=== PATIENT | male | born 1985 | race Caucasian/White ===

== ENCOUNTER 2025-02-25 09:04 | Outpatient (REF) | payer OTHER, SELFPAY ==
--- NOTE | ~2025-02-25 | XR_ITS ---
EXAMINATION: XR KNEE, RIGHT CLINICAL INFORMATION: M17.11 - Unilateral primary osteoarthritis, right knee COMPARISON: None available. TECHNIQUE: AP view bilateral knees standing, lateral and patellofemoral views right knee. FINDINGS: LEFT Knee: No fracture or dislocation. Normal alignment. Preserved joint spaces. Normal soft tissues. RIGHT Knee: No fracture, dislocation, or suspicious bone lesion. Joint spaces are preserved. Normal knee and patellar alignment. Bipartite patella noted. No evidence of joint effusion. Normal soft tissues. XR/XR knee RT 3V IMPRESSION: 1. Normal right knee. Electronically signed by: Eran Macdonald MD 02/25/2025 09:56 AM EDT
== END 2025-02-25 09:05 | disposition home or self-care (01) ==
LOC: HO.HOSX 09:04
PROVIDERS: PCP Internal Medicine; Visit Provider Orthopaedic Surgery
DX: Q74.1 Congenital malformation of knee (principal); M17.11 Unilateral primary osteoarthritis, right knee
CPT/HCPCS: 73562

== ENCOUNTER 2025-02-25 09:04 | Outpatient (AMB) | payer OTHER, SELFPAY ==
--- NOTE | 2025-02-25 09:07 | MHC.OFFVIS ---
Vital Signs 02/25/25 09:22 Height 5 ft 9 in Weight 195 lb BMI 28.8 Intake Visit Reasons: New Patient - Right Knee Pain Intake Note: Phillip is a 39 year old male who presents today for a new patient visit with complaints of Right Knee Pain. Patient rpeorts that he has had ongoing right knee pain for about 2 months now. Denies injury. His pain is felt all the time. He is taking Aspirin Daily occasionally BID which is not helping. No previous treatments. Allergies bee pollen (bee stings) Allergy (Verified 02/25/25 09:20) Unknown HPI HPI New Patient - Right Knee Pain: Details: This is a 39-year-old gentleman who is an avid runner who about 8 weeks ago started having right patellar pain. 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 He still can not run and is uncomfortable throughout the day. The pain localized to the superolateral aspect of his right patella. He denies injury. [facility] Social History (Updated 02/25/25 @ 09:22 by Eli Grajeda [facility]) Current occupational status: employed Current occupation: Respiratory Therapist Physical Exam Vital Signs: BMI result Body Mass Index 28.8 Extrem Other: On exam there is tenderness to palpation over the proximal lateral aspect of his right patella. There are no skin changes and there is no effusion. He has mild pain with resisted knee extension. He has full range of motion. Results Reviewed Results Reviewed: I personally reviewed relevant radiographs. RIGHT Knee: No fracture, dislocation, or suspicious bone lesion. Joint spaces are preserved. Normal knee and patellar alignment. Bipartite patella noted. No evidence of joint effusion. Normal soft tissues. 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 I recommend a physical therapy, a Liborio Pull lateral bolster knee sleeve was given to the patient and I recommend an MRI to better assess. 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
[2025-02-25 09:22] VITALS: BMI 28.8
== END 2025-02-25 16:04 | disposition home or self-care (01) ==
LOC: HO.HOS 09:04
PROVIDERS: PCP Internal Medicine; Visit Provider Orthopaedic Surgery
DX: Q74.1 Congenital malformation of knee (principal)
CPT/HCPCS: 99203

== ENCOUNTER → 2025-02-25 09:13 | Outpatient (BNV) | payer OTHER, SELFPAY | PROVIDERS: PCP Internal Medicine; Visit Provider Radiology Diagnostic Radiology | DX: M17.11 Unilateral primary osteoarthritis, right knee (principal) | CPT/HCPCS: 73562 ==

== ENCOUNTER → 2025-03-15 17:40 | Outpatient (BNV) | payer OTHER, SELFPAY | PROVIDERS: PCP Internal Medicine; Visit Provider Radiology Diagnostic Radiology | DX: Q74.1 Congenital malformation of knee (principal) | CPT/HCPCS: 73721 ==

== ENCOUNTER 2025-03-15 17:41 | Outpatient (REF) | payer OTHER, SELFPAY ==
--- NOTE | ~2025-03-15 | MR_ITS ---
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 TECHNIQUE: Coronal T1 and fat-suppressed proton density, sagittal proton density and fat-suppressed proton density, and axial fat suppressed T2 weighted MR images of the right knee were obtained. FINDINGS: Bone marrow: There is a bipartite patella involving the superolateral aspect of the patella. There is no marrow edema within the unfused accessory ossification center or the remainder of the patella. There is sclerosis involving the accessory ossicle. Joint effusion: There is no joint effusion. Young's cyst: There is no Young's cyst. Articular cartilage: Intact Muscles/soft tissues: The visualized muscles demonstrate normal signal intensity. Anterior cruciate ligament: Intact Posterior cruciate ligament: Intact Medial collateral ligament: Intact Lateral collateral ligament: Intact Medial meniscus: There is a tiny linear focus of increased T2 signal with intensity at the junction of the body and posterior horn which may contact the superior joint surface. Lateral meniscus: Intact Flexor mechanism: The popliteus and gastrocnemius tendons are intact. There is increased signal intensity at the insertion of the semimembranosus tendon suggestive of a partial tear. Quadriceps tendon: Intact Patellar tendon: Intact Patellar retinacula: Intact MR/MR knee RT wo con IMPRESSION: 1. Bipartite patella with no evidence of marrow edema involving the accessory ossification center or the parent portion of the patella. 2. Equivocal tear of the posterior body/posterior horn of the medial meniscus. 3. Findings suggestive of a partial tear of the insertion of the semimembranosus tendon. Electronically signed by: Manoj Yadav MD 03/16/2025 07:20 AM EDT
== END 2025-03-15 17:42 | disposition home or self-care (01) ==
LOC: HO.MRI 17:41
PROVIDERS: PCP Internal Medicine; Visit Provider Orthopaedic Surgery
DX: Q74.1 Congenital malformation of knee (principal)
CPT/HCPCS: 73721

== ENCOUNTER 2025-04-14 10:52 | Outpatient (AMB) | payer OTHER, SELFPAY ==
--- NOTE | 2025-04-14 10:57 | MHC.OFFVIS ---
Intake Visit Reasons: OV- Right Knee MRI review Intake Note: Phillip is a 39 year old male who presents today for an MRI review of the right knee. Last visit we ordered physical therapy and provided him with a Liborio-Pull brace. Allergies bee pollen (bee stings) Allergy (Verified 02/25/25 09:20) Unknown HPI HPI OV- Right Knee MRI review: Details: Phillip is a 39 year old male who presents today for an MRI review of the right knee. Last visit we ordered physical therapy and provided him with a Liborio-Pull brace. He would like to be running like before but can barely run. His pain is superolateral patella. [facility] Social History (Updated 02/25/25 @ 09:22 by Eli Grajeda [facility]) Current occupational status: employed Current occupation: Respiratory Therapist Physical Exam Extrem Other: ttp superolateral bipartite patella. No effusion. No pain with resisted knee extension. Results Reviewed Results Reviewed: I personally reviewed the MR images. 1. Bipartite patella with no evidence of marrow edema involving the accessory ossification center or the parent portion of the patella. 2. Equivocal tear of the posterior body/posterior horn of the medial meniscus. 3. Findings suggestive of a partial tear of the insertion of the semimembranosus tendon. 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 This started about 5 months ago. It is not getting worse but he is really limited his running. I reviewed the MRI with him. I would begin to get back into his activities and see if he is able to resume running. We discussed surgery. I think that is possible but I would wait to see if it gets worse and I do not think the recovery would be quick as this is significant portion of his patella. I would recommend he avoid surgery if possible. He is of the same mind and we will continue to increase activity slowly over the next 3 months. Follow up in 3 months. Coding Level of Care Code Est Pt Level 3 (35336) Diagnoses Bipartite patella Q74.1
--- OUTSIDE RECORDS SUMMARY | 2025-04-14 11:35 | XMS_ITS ---
Author Name [facility] Organization Unknown Care Team Organization Name Specialty Phone Email Start Date End Da te [facility] NULL Primary Care 07/16/2022 04/26/2024
--- OUTSIDE RECORDS SUMMARY | 2025-04-14 11:35 | XMS_ITS | Encounter Summary ---
Author Organization [facility] Address [address] [place] [address] Phone Care Team Providers Care Wharf Worker Name Role Phone Raleigh Irby MD Primary Care Provider [phone] Dean Zhang DO Unavailable [phone] Encounter Details Date Type Department Care Team (Late st Contact Info) Description 03/16/2025 Orders Only [facility] Family Medicine [address] [place] [address] Provider, MD Mary [address] [place] [id number] Social History Tobacco Use Types Packs/Day Years Used Date Smoking Tobacco: Former Cigarettes 1 13 0 02/19/2005 - 02/19/2018 Smokeless Tobacco: Never Comments:0.5-1 ppd per pt re port Alcohol Use Standard Drinks/Week Comments Yes 0 (1 standard drink = 0.6 oz pur e alcohol) social Child or Family Care Answer Date Record ed Do you have problems with on e of the following making it difficult for you to work, study, or receive health care? No 10/06/2024 Education Answer Date Recorded Are you interested in help w ith more adult education (for example, completing high school, GED, job training, learning the [place] language, technical skills, or developing parenting skills)? No 10/06/2024 Are you concerned about learning? Not on file 10/06/2024 No 10/06/2024 Yes 10/06/2024 Food Answer Date Recorded Within the past 6 months we worried whether our food would run out before we got money to buy more. Never True 10/06/2024 Within the past 6 months the food we bought just didn't last and we didn't have enough money to get more. Never True Residential Stability Answer Date Recor ded What is your housing situation today? I have inocente lindsay 10/06/2024 How many times have you move d in the past 12 months? Zero (I did not move) 10/06/2024 Paying for Meds Answer Date Recorded Do you have trouble paying for medicines? No 10/06/2024 Paying Utility Bills Answer Date Record ed Do you have trouble paying your heating or elect ricity bill? No 10/06/2024 Transportation Answer Date Recorded Has the lack of transportati on kept you from medical appointments or from getting medications? No 10/06/2024 Unemployment Answer Date Recorded Are you currently unemployed or working on a part-time or temporary basis, and looking for work? No 10/06/2024 Digital Access Answer Date Recorded No 10/06/2024 Yes 10/06/2024 Do you have reliable internet access at home? I choose not to answer 10/06/2024 Do you have a device (e.g., phone, tablet, computer) with a working camera? Yes 10/06/2024 Intimate Partner Violence Answer Date R ecorded Denied Basic Needs Not on file 10/06/2024 In the past 12 months have y ou been in a relationship with a person who hurts, threatens, or tries to control you? No 10/06/2024 Worried food would run out Not on file 10/06 In the past 12 months have y ou been in a relationship with a person who hurts, threatens, or tries to control you? 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 Not on file Not on file Not on f ile documented as of this encounter Plan of Treatment Upcoming Encounters Date Type Department Care Team (Late st Contact Info) Description 10/11/2025 1:00 PM EST Office Visit [facility] [place] [facility] [address] [place] [address] [place] [address] Raleigh Irby MD [address] [place] [address], [address] [place] [address] [email or web address] documented as of this encounter Procedures Procedure Name Priority Date/Time Associated Diagnosis Comments OUTSIDE IMAGING Routine 03/15/2025 10:52 AM EDT documented in this encounter Results * Outside Imaging Report Only (03/15/2025 10:52 AM EDT) us Historical Provider MD JACKMAN XR CHEST Final Res ult documented in this encounter Visit Diagnoses Not on filedocumented in this encounter Additional Health Concerns Assessment Noted Time PHQ-9 Depression Total Score: 24 020 8:39 AM EDT PHQ-2 Depression Total Score: 1 10/06/19 25 10:38 PM EST documented as of this encounter Care Teams Wharf Worker Relationship Specialty Start Date End Date Raleigh Irby MD [address] [place] [address], [address] [place] [address] [email or web address] PCP - General Internal Medicine 10/09/18 Dean Zhang DO [address] [place] [address], [address] [place] [address] Psychiatry 06/07/20 documented as of this encounter Additional Source Comments The information contained in this document represents components of the legal health record. It is not the complete legal health record.[facility]
== END 2025-04-14 11:14 | disposition home or self-care (01) ==
LOC: HO.HOS 10:53
PROVIDERS: PCP Internal Medicine; Visit Provider Orthopaedic Surgery
DX: Q74.1 Congenital malformation of knee (principal)
CPT/HCPCS: 99213

== ENCOUNTER 2025-08-08 09:21 | Outpatient (AMB) | payer OTHER, SELFPAY ==
[2025-08-08 09:23] VITALS: BMI 28.8
--- NOTE | 2025-08-08 09:23 | MHC.OFFVIS ---
Vital Signs 08/08/25 09:23 Height 5 ft 9 in Weight 195 lb BMI 28.8 Intake Visit Reasons: OV- Right Knee Bipartite Patella Intake Note: Phillip is a 39 year old male who presents today for a follow up of his Right Knee/Bipartite Patella. He is an active runner and his symptoms are limiting his running. We discuss possible surgery but overall was recommended to avoid surgery due to lengthy recovery. He has been utilizing the Liborio-Pull brace. Patient reports that his brace was a bit too small but did not bring it in today to exchange. He continues to have good and bad days. Allergies bee pollen (bee stings) Allergy (Verified 08/08/25 09:25) Unknown HPI HPI OV- Right Knee Bipartite Patella: Details: Phillip is a 39 year old male who presents today for a follow up of his Right Knee/Bipartite Patella. He is an active runner and his symptoms are limiting his running. We discuss possible surgery but overall was recommended to avoid surgery due to lengthy recovery. He has been utilizing the Liborio-Pull brace. Patient reports that his brace was a bit too small but did not bring it in today to exchange. He continues to have good and bad days. This has been occurring since November. He is an avid runner can not run. 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 He describes continued pain over the anterolateral patella. He denies swelling. [facility] Social History (Updated 02/25/25 @ 09:22 by Eli Grajeda [facility]) Current occupational status: employed Current occupation: Respiratory Therapist Physical Exam Exam Exam: Mild but persistent tenderness to palpation over the proximal anterolateral aspect of the patella. Pain with range of motion. Mild discomfort resisted knee extension but 5/5 strength. 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 He is an active runner and it has been 9 months that he can not run or engage in daily activities without discomfort. The MRI and plain films reveal a bipartite patella with an atypical appearance possibly consistent with a small fracture of a portion of the bipartite patella. Regardless he has not improved and is limited. I recommend excision of the bipartite patella. I discussed this with him in detail. I think the primary risk is that there is incomplete symptom resolution. I discussed this with him. I also discussed the risk of infection, need for further surgery, new pain, inability to return to running. Overall I think open excision of the this bony fragment we will provide relief however. He will discuss with his with regards to work and get back to. All his questions were answered to the best of my abilities. Coding Level of Care Code Est Pt Level 4 (04163) Diagnoses Bipartite patella Q74.1
--- OUTSIDE RECORDS SUMMARY | 2025-08-08 11:03 | XMS_ITS | Clinical Summary ---
Author Organization [facility] Address [address] [place] [address] Phone Care Team Providers Care Bench Hand Name Role Phone Raleigh Irby MD Primary Care Provider [phone] Dean Zhang DO Unavailable Allergies Active Allergy Reactions Criticality Noted Date Comments Bee Venom Protein (Honey Bee) 2018 Medications LORazepam (ATIVAN) 0.5 MG tablet Take 0.5 mg by mouth daily as needed for anxiety. Active traZODone (DESYREL) 50 MG tablet as needed. 08/29/20 21 Active prazosin (MINIPRESS) 2 MG capsule 06/14/20 22 Active buPROPion (WELLBUTRIN XL) 300 MG ER 24 hr tablet Take 300 mg by mouth daily. Active gabapentin (NEURONTIN) 300 MG capsule Take 100 mg by mouth 3 (three) times a day. Active albuterol 2.5 mg /3 mL (0.083 %) nebulizer solutionIndica tions:Primary atypical pneumonia Take 3 mL (2.5 mg total) by nebulization every 6 (six) hours as needed for wheezing. 50 mL 1 02/19/20 25 Active EPINEPHrine 0.3 mg/0.3 mL auto-injectorI ndications:Bee sting allergy Inject 0.3 mL (0.3 mg total) into the muscle once as needed for anaphylaxis. 2 each 02/19/20 25 Active primidone (MYSOLINE) 50 MG tabletIndicati ons:Essential tremor TAKE 2 TABLETS BY MOUTH EVERY NIGHT AT BEDTIME 180 tablet 11/24/20 25 Active primidone (MYSOLINE) 50 MG tabletIndicati ons:Essential tremor TAKE 2 TABLETS BY MOUTH EVERY NIGHT AT BEDTIME 180 tablet 04/26/20 25 025 Discontinued Active Problems Problem Noted Date Diagnosed Date Family history of prostate cancer in father 09/10 Assessment & Plan (10/07/2024 1:37 PM EST): Recommend starting prostate cancer screening now. Depending on PSA result, will determine if we should check every 1 or 2 years. Obstructive sleep apnea 11/13/2020 Overview (11/13/2020): Sleep study at sleep medicine services, patient reports showed mild sleep apnea. Was not able to tolerate CPAP. Assessment & Plan (08/29/2022 11:55 AM EST): It is not clear if his daytime somnolence has to do with sleep apnea or may be related to taking trazodone. Asked him to consider cutting back on the dose. He will also make another appointment with sleep medicine to discuss treatment, but if his AHI was only mild, it is unlikely CPAP will make much of a difference. Assessment & Plan (07/20/2021 2:34 PM EST): Doing well with nasal splinting. Continue the same. Assessment & Plan (11/13/2020 1:03 PM EST): I asked him to schedule follow-up appointment with sleep medicine services to discuss treatment options. Hip pain, bilateral 11/13/2020 Assessment & Plan (11/13/2020 1:04 PM EST): Symptoms seem likely due to muscular tightness. This may be involving his IT band. I showed him some stretching he can do. If this is not helpful he will call and I can refer him to physical therapy. Essential tremor 06/07/2020 Assessment & Plan (10/07/2024 1:37 PM EST): Start primidone 25 mg nightly. If he is tolerating this after 1 week increase to 50 mg. He will send a message in about a month let me know how he is doing we can titrate the dose as needed. Assessment & Plan (08/02/2020 2:17 PM EST): I would like him to increase his propranolol to 80 mg daily. I asked him to monitor his blood pressure because the last reading he had here in the office was 100/60. If he develops lightheadedness or his blood pressure starts getting significantly lower we may need to rethink the medication dose. On the other hand if his blood pressure stays normal and is not lightheaded or bradycardic, but the tremor is not controlled he could try increasing the dose up to 120 mg of propranolol daily. He will let me know how he is doing in a few weeks if things are not going well. Assessment & Plan (06/07/2020 9:17 AM EDT): Most likely he has an essential tremor we will do some labs to rule out metabolic abnormalities including Robert's disease because of a young age of onset. If his labs are normal, I will start him on a low-dose of propranolol. Major depressive disorder wi th single episode, in full remission 05/02/2020 Overview (11/13/2020): Managed by psychiatry at the [facility] Assessment & Plan (10/07/2024 1:37 PM EST): Doing well, continue current medication. He should avoid taking lorazepam within 6 hours of taking primidone. Assessment & Plan (08/29/2022 11:56 AM EST): Well-controlled. As mentioned above, trazodone could be causing excess somnolence and asked him to try to cut down on the dose I gave him some ideas regarding how to fall back asleep if he does awaken during the night. Assessment & Plan (07/20/2021 2:33 PM EST): He is doing much better and is doing well with his current medication. Continue the same and follow-up as scheduled with his therapist and psychiatrist. Assessment & Plan (11/13/2020 1:04 PM EST): He is doing better but still has some trouble with anxiety. I asked him to contact his psychiatrist about increasing the dose of sertraline. Daytime somnolence could be due to hydroxyzine and I think you should discuss this with his psychiatrist well. The somnolence may be more to do with sleep apnea so I asked him to discuss this with his sleep specialist. Assessment & Plan (07/12/2020 8:20 AM EST): Depression and anxiety are better but is having trouble with tremor. This may get better as a anxiety improved since the tremors mainly associated with stressful situations. We could increase the dose of propranolol but I suggest that he discuss this with his psychiatrist first to see if he wants to adjust his anxiolytic medication. If not we could double the dose of propranolol and see if this helps to control his symptoms and at least use this until his anxiety is lessened. He will continue following up with his therapist and I will see him back for a virtual visit in about 6 weeks. Assessment & Plan (06/07/2020 9:17 AM EDT): Depression is doing better. Continue medical management with psychiatry from the [facility]. he has follow-up scheduled with him in about 3 weeks. Assessment & Plan (05/02/2020 12:03 PM EDT): Patient is very depressed. We contracted for safety. He will follow-up as scheduled with his therapist at the [facility] and psychiatrist in about a month. I given prescription for lorazepam and sertraline. Benefits risks and side effects were reviewed. If he is seeing the psychiatrist in about a month, he can cancel to follow-up with me if the psychiatrist to go to be managing his medications. Otherwise we will see him in about a month. If he has any worsening of his symptoms he should let me know right away. Microscopic hematuria 12/23/2018 Assessment & Plan (12/23/2018 4:37 PM EDT): Since the urine was only positive on dipstick and no microscopic was done, will repeat the test. Most likely just related to some mild dehydration. He will let me know if he sees any gross hematuria or symptoms or not improving. If his urinalysis is normal no further evaluation is necessary at this point. Recurrent headache 10/14/2018 Assessment & Plan (08/29/2022 11:56 AM EST): Could be related to caffeine intake and I asked him to cut back on his caffeine intake to 1 cup/day to see if this helps. Sleep apnea also could be causing this if he is having significant hypoxia at night, and he will discuss this with sleep medicine Assessment & Plan (10/14/2018 9:53 AM EST): Headaches may be exacerbated by sleep apnea. They may have also been partially treated in the past because the patient's increased caffeine intake, but he decreased his caffeine months prior to his headaches worsening. He has no worrisome symptoms of a pathological process. It is possible that these are common migraines. If he has sleep apnea, but headaches do not improve with CPAP, I will try him on a low- dose of a beta mayito. He may continue using ibuprofen or Fioricet. He should minimize the use of Fioricet to less than twice a week. 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 If has a bee sting should contact EMS for transport to the nearest emergency room. Assessment & Plan (02/19/2025 1:52 PM EDT): Refill sent. Orders: EPINEPHrine 0.3 mg/0.3 mL auto-injector; Inject 0.3 mL (0.3 mg total) into the muscle once as needed for anaphylaxis. Resolved Problems Problem Noted Date Diagnosed Date Resolved Date Essential hypertension 11/13/202008/29 Assessment & Plan (07/20/2021 2:34 PM EST): Blood pressure is normal today. I think some of the elevation of the past may been due to anxiety. Continue low-sodium diet and follow clinically. Assessment & Plan (11/13/2020 1:02 PM EST): Blood pressures well controlled using beta-mayito for this and tremor. Continue the same. Acute upper respiratory infection 12/17/2019 06/07/2020 Assessment & Plan (12/17/2019 11:16 AM EDT): Symptoms are largely resolved but he still has some residual dyspnea. This should gradually improve over the course of the next week or 2. If his symptoms worsen or fail to improve as expected, he will call back. Primary atypical pneumonia 09/20/2019 0 06/07/2020 Assessment & Plan (09/20/2019 11:01 AM EST): I will empirically treat him with doxycycline for an atypical pneumonia or bronchitis. If he is not feeling better in the next few days, I like him to have a chest x-ray. He will let us know if he is not improving. Mild intermittent asthma wit h acute exacerbation 09/16/2019 09/20/2019 Assessment & Plan (09/16/2019 10:29 AM EST): Most likely he has some mild intermittent asthma which is been triggered by a viral infection. I given prescription for prednisone and an albuterol inhaler. If his symptoms do not improve in the next few days with this, I would empirically treat him with doxycycline. Viral gastroenteritis 12/23/20182020 Assessment & Plan (12/23/2018 4:36 PM EDT): Patient is doing better. Likely viral infection. Continue drinking more fluids to try to maintain hydration. Diarrhea should resolve in the next day or 2. If not let me know. Daytime somnolence 10/14/2018 Assessment & Plan (10/14/2018 9:52 AM EST): Symptoms are consistent with obstructive sleep apnea. Will check a sleep study. If this is abnormal we will start CPAP. Snoring 10/14/2018 07/20/2021 Encounters Date Type Department Care Team Description 07/31/2025 Refill [facility] [address] [place] [address] Yahaira Lucero, JENNIFER Medication Refill from Last 3 Months Immunizations Immunization Administration Dates Next Due COVID-19 (Pre-06/30) Moderna Vaccine, mRNA, PF 09/22/2021,11/02/2020,10/05/2020 INFLUENZA, SPLIT VIRUS, TRIVALENT PF 08/02/2024 INFLUENZA, SPLIT VIRUS, TRIV ALENT W/ PRESERVATIVE IM 07/15/2023 Influenza Quadrivalent Adjuv anted Preservative Free IM 06/26/2022 Influenza Quadrivalent Preservative Free IM 07/10 Influenza, Unspecified Formulation 07/09/2018 Tdap 08/29/2022 Family History Medical History Relation Comments No Known Problems Daughter Prostate cancer Father Lupus Mother No Known Problems Sister 1 No Known Problems Sister 2 No Known Problems Son 1 No Known Problems Son 2 Relation Status Comments Daughter Alive Father Alive Strain Mother Alive Sister 1 Alive Sister 2 Alive Son 1 Alive Son 2 Alive Social History Tobacco Use Types Packs/Day Years Used Date Smoking Tobacco: Former Cigarettes 1 13 0 02/19/2005 - 02/19/2018 Smokeless Tobacco: Never Tobacco Cessation:Counseling Given: Not Answered Comments:0.5-1 ppd per pt report Alcohol Use Standard Drinks/Week Comments Yes 0 [...] high school, GED, job training, learning the Khmer language, technical skills, or developing parenting skills)? [...] your housing situation today? I have inocente sing 10/06/2024 How many times have you move [...] Not on file Not on f ile Last Filed Vital Signs Vital Sign Reading Time Taken Comments Blood Pressure 120/74 02/18/2025 3:42 PM EDT Pulse 69 02/18/2025 3:42 PM EDT Temperature 36.7 C (98 F) 02/18/2025 3:42 PM EDT Respiratory Rate 18 02/18/2025 3:42 PM EDT Oxygen Saturation 98% 02/18/2025 3:4 2 PM EDT Inhaled Oxygen Concentration - - Weight 87.5 kg (192 lb 12.8 oz) 025 3:42 PM EDT with shoes Height 174.5 cm (5' 8.7 ) 10/07/2024 12 :55 PM EST Body Mass Index 28.72 10/07/2024 12:55 PM EST Plan of Treatment Upcoming Encounters Date Type Department Care Team (Late st Contact Info) Description 10/11/2025 1:00 PM EST Office Visit [facility] Medicine [address] [place] [address] Dr [place] [address] Raleigh Irby MD [address] [place] [address] [email or web address] Health Maintenance Due Date Last Done Comments INFLUENZA VACCINE (#1) 2025 , 07/15/2023, 06/26/2022, Additional history exists COVID-19 VACCINE ( season) 2025 09/22/2021, 11/02/2020, 10/05/2020 DEPRESSION SCREENING 10/06/2025 10/06/2024, 05/02/20 20 SCREENING FOR DIABETES 10/27/2027 10/27/2024, 2022 LIPID PANEL 10/27/2029 10/27/2024, 11/07, 11/26/2022, Additional history exists SMOKING STATUS SCREENING (Every 5 Years) 02/18/2030 02/18/2025 Adult Td,Tdap Booster 08/29/2032 08/29/2022 HEPATITIS C SCREENING Completed 11/26/2022, 023 HIV ONE-TIME SCREENING (18-65 YEARS) Completed 11/26/2022 HEPATITIS A VACCINES Aged Out No long er eligible based on patient's age to complete this topic HIB VACCINES Aged Out No longer eligi ble based on patient's age to complete this topic MENINGOCOCCAL VACCINES (ACWY) Aged Out No longer eligible based on patient's age to complete this topic MENINGOCOCCAL VACCINES (B) Aged Out N o longer eligible based on patient's age to complete this topic PNEUMOCOCCAL VACCINES (0-49 years) Aged Out No longer eligible based on patient's age to complete this topic Medical Devices Not on file Procedures Procedure Name Priority Date/Time Associated Diagnosis Comments LIPID PANEL Routine 10/27/2024 1:49 PM EST Encounter for preventive health examination GLUCOSE Routine 10/27/2024 1:49 PM EST Encounter for preventive health examination HEPATITIS C ANTIBODY, QUALITATIVE Routine 11/26/2022 9:12 AM EDT Need for hepatitis C screening test from Last 3 Months or Most Recently Relevant to Health Maintenance Results * Glucose (10/27/2024 1:49 PM EST) GLUCOSE 74 70 - 99 mg/dL [facility] Blood 10/27/2024 1:49 PM EST 10/27/2024 1:51 PM EST us Raleigh Irby MD LAB BLOOD BKR ORDERABLES F inal Result [address] [address] * (ABNORMAL) Lipid panel (10/27/2024 1:49 PM EST) HDL 69 mg/dL [facility] Comment: Interpretation <40 mg/dL: Low HDL cholesterol (major risk factor for CHD) Greater than or equal to 60 mg/dL: High HDL cholesterol ( negative risk factor for CHD) HDL - cholesterol is affected by a number of factors, e.g. smoking, excerise, hormones, sex and age. CHOLESTEROL 165 0 - 240 mg/dL [facility] TRIGLYCERIDES 94 30 - 160 mg/dL [facility] LDL 77 50 - 129 mg/dL [facility] Comment: LDL levels in terms of risk for coronary heart disease: <100 mg/dL: Optimal 100-129 mg/dL: Near or above optimal 130-159 mg/dL: Borderline high 160-189 mg/dL: High >190 mg/dL: Very High CARDIAC RISK RATIO 2.4(L) 3.4 - 5.0 [facility] Blood 10/27/2024 1:49 PM EST 10/27/2024 1:51 PM EST us Raleigh Irby MD LAB BLOOD BKR ORDERABLES F inal Result [address] [address] * Hepatitis C antibody, qualitative (11/26/2022 9:12 AM EDT) HCV NON-REACTIV E NON-REACTI VE [facility] Blood 11/26/2022 9:12 AM EDT 11/26/2022 9:22 AM EDT Raleigh Irby MD LAB BLOOD BKR ORDERABLES F inal Result Performing Organization Address [facility] Co de Phone Number [address] [address] from Last 3 Months or Most Recently Relevant to Health Maintenance Insurance [facility] [employer] [facility] [employer] [facility] [id number] [place] [address] [employer] [facility] [employer] Care Teams Bench Hand Relationship Specialty Start Date End Date Raleigh Irby MD [address] [place] [address], [address] [place], [place] [id number] [email or web address] PCP - General Internal Medicine 10/09/18 Dean Zhang DO [address] [place] [address], [address] [place], [place] [id number] Psychiatry 06/07/20 Additional Source Comments The information contained in this document represents components of the legal health record. It is not the complete legal health record.[facility]
== END 2025-08-08 11:09 | disposition home or self-care (01) ==
LOC: HO.HOS 09:22
PROVIDERS: PCP Internal Medicine; Visit Provider Orthopaedic Surgery
DX: M22.8X1 Other disorders of patella, right knee (principal); Q74.1 Congenital malformation of knee
CPT/HCPCS: 99214

== ENCOUNTER 2025-08-24 06:57 | Day surgery (SDC) | payer OTHER, SELFPAY ==
[2025-08-15 09:06] VITALS: BMI 25.8
--- NOTE | 2025-08-22 09:15 | HO.ANESPROP2 ---
Documented by User: Anh Robertson NP 08/22/25 09:15 HPI - Anesthesia Eval Consult details Narrative: 39yo M for Right Patella ORIF (Bipartite excision) PMFSH Active Problems Active Problems: All Active Problems Bipartite patella (Acute) Past Medical History Medical History (Updated 08/15/25 @ 08:51 by Jordyn Robertson RN) Anxiety PTSD (post-traumatic stress disorder) Surgical History Surgical History (Updated 08/15/25 @ 08:51 by Jordyn Robertson RN) No pertinent past surgical history Social History Social History (Updated 02/25/25 @ 09:22 by Eli Grajeda CMA) Are you a primary eye care professional to a significant other at home: No Do you presently have visiting nurse or other home services: No Patient Tobacco Use Status: Never used Tobacco Use of substances other than those prescribed or required for medical reasons: No Have you been hit, kicked, punched, or otherwise hurt by someone within the past year? If so, by whom?: No Are you DNR?: No Advance Directives: No Advance Directives Information Provided: Yes Advance Directives on File: No Current occupational status: employed Current occupation: Respiratory Therapist Meds Allergies Allergy/AdvReac Type Severity Reaction Status Date / Time bee pollen (bee stings) Allergy Unknown Verified 08/08/25 09:25 Home Medications ?Medication ?Instructions ?Recorded ?Confirmed ?Last Taken ?Type bupropion HCl 300 mg 24 hr tablet, 300 mg PO QAM 02/25/25 08/15/25 Unknown History extended release (Wellbutrin XL) epinephrine 0.3 mg/0.3 mL 1 mg IM DAILY 02/25/25 08/15/25 Unknown History injection, auto-injector gabapentin 100 mg capsule 100 mg PO BID 02/25/25 08/15/25 Unknown History lorazepam 0.5 mg tablet 0.5 mg PO DAILY PRN Anxiety 08/15/25 08/15/25 Unknown History primidone 50 mg tablet 100 mg PO BEDTIME 08/15/25 08/15/25 Unknown History trazodone 50 mg tablet 50 mg PO BEDTIME 08/15/25 08/15/25 Unknown History Exam Height,Weight and Vital Signs: Height 5 ft 9 in Weight 79.379 kg Assessment and Plan Assessment Anesthesia Assessment: Chart Reviewed Documented by User: Gayle Ocampo MD 08/24/25 08:10 PMFSH Past Medical History Medical History (Updated 08/15/25 @ 08:51 by Jordyn Robertson RN) Anxiety PTSD (post-traumatic stress disorder) Family History Family history of problems with anesthesia: No Surgical History Surgical History (Updated 08/15/25 @ 08:51 by Jordyn Robertson RN) No pertinent past surgical history History of Problems with Anesthesia: No Social History Social History (Updated 02/25/25 @ 09:22 by Eli Grajeda CMA) Are you a primary eye care professional to a significant other at home: No Do you presently have visiting nurse or other home services: No Patient Tobacco Use Status: Never used Tobacco Use of substances other than those prescribed or required for medical reasons: No Have you been hit, kicked, punched, or otherwise hurt by someone within the past year? If so, by whom?: No Are you DNR?: No Advance Directives: No Advance Directives Information Provided: Yes Advance Directives on File: No Current occupational status: employed Current occupation: Respiratory Therapist Meds Allergies Allergy/AdvReac Type Severity Reaction Status Date / Time bee pollen (bee stings) Allergy Unknown Verified 08/08/25 09:25 Home Medications ?Medication ?Instructions ?Recorded ?Confirmed ?Last Taken ?Type bupropion HCl 300 mg 24 hr tablet, 300 mg PO QAM 02/25/25 08/15/25 Unknown History extended release (Wellbutrin XL) epinephrine 0.3 mg/0.3 mL 1 mg IM DAILY 02/25/25 08/15/25 Unknown History injection, auto-injector gabapentin 100 mg capsule 100 mg PO BID 02/25/25 08/15/25 Unknown History lorazepam 0.5 mg tablet 0.5 mg PO DAILY PRN Anxiety 08/15/25 08/15/25 Unknown History primidone 50 mg tablet 100 mg PO BEDTIME 08/15/25 08/15/25 Unknown History trazodone 50 mg tablet 50 mg PO BEDTIME 08/15/25 08/15/25 Unknown History Exam Airway Mallampati Class: II TM Dist: >3cm Neck ROM: Full Heart: rrr Lungs: cta Assessment and Plan Assessment Anesthesia Assessment: Anesthesia Plan Discussed and Chart Reviewed Final Anesthetic Review Family History of Problems with Anesthesia: No History of Problems with Anesthesia: No NPO: Yes ASA Class: II Final Preanesthetic Review: No Changes in Pt Med Stat, Meds/Allgs Chart Reviewed and Consent Obtained/Reviewed Patient Risk: Low Procedure Risk: Low Anesthetic Plan Anesthetic Plan: GA Disposition: Standard PACU
[2025-08-24] VITALS (14 sets, daily range): BP systolic 120–144; BP diastolic 69–93; PULSE 57–76; RESP 12–18; TEMP 36.1–36.2; O2SAT 97–100; BMI 25.8
--- NOTE | ~2025-08-24 | FL_ITS ---
EXAMINATION: XR FLUOROSCOPY WITH IMAGES CLINICAL INFORMATION: Patellar ORIF COMPARISON: None available. TECHNIQUE: Fluoroscopy time: 1 seconds DAP: 0.2 mGy Images: 2 FINDINGS: Fluoroscopy provided for patellar ORIF No radiologist present. FL/FL guidance in OR IMPRESSION: Fluoroscopy provided for surgery. See surgical report for details. Electronically signed by: Víctor Sanches MD 08/25/2025 07:45 AM EST
--- NOTE | 2025-08-24 07:31 | MHC.SHP ---
Pre-Procedural Eval Section A - 24 Hr Update-Section A only Date of Service: 08/24/25 The patient is an INPATIENT: No Changes since office visit: No Cold of Flu in the past 2 weeks, No New Medical Problems, No Changes in Medication and No Patient answered all questions The patient has been examined within 24 hours of the surgical procedure. The History & Physical has been completed within 30 days and I have reviewed it.: Yes Section B - Complete if H&P > 30 days Chief Complaint: Congenital malformation of knee Allergies: Allergies Allergy/AdvReac Type Severity Reaction Status Date / Time bee pollen (bee stings) Allergy Unknown Verified 08/08/25 09:25 Plan I have reviewed the history and physical and performed a pertinent physical examination on my patient. No changes have occurred unless specified. Time Spent With Patient Time: Total time managing care of this patient today ____ minutes.
[2025-08-24] MEDS: Lactated Ringers 1,000 ML 100 ML IVCONT (07:34)
--- NOTE | 2025-08-24 10:35 | P.BOP_ITS ---
Brief Operative Note Date of Service: 08/24/25 Pre-op diagnosis: bipartite patella right knee Post-op diagnosis: same Procedure: excision bipartite patella right knee Implants: none Surgeon: Vimal Perea MD Anesthesia: local Was an Solid Waste Truck Driver used for this Procedure?: Yes Solid Waste Truck Driver: Genesis Saez Estimated blood loss (mL): 20 Tourniquet time (min): 25 IV fluids (mL): 500 Pathology: other Condition: stable Disposition: PACU
--- NOTE | 2025-08-29 14:10 | P.OP_ITS ---
Operative Note Operative Note Date of Service: 08/24/25 Narrative: Date of Service: 08/24/25 Pre-op diagnosis: bipartite patella right knee Post-op diagnosis: same Procedure: excision bipartite patella right knee Implants: none Surgeon: Vimal Perea MD Anesthesia: local Was an Circulation Supervisor used for this Procedure?: Yes Circulation Supervisor: Genesis Saez Estimated blood loss (mL): 20 Tourniquet time (min): 25 IV fluids (mL): 500 Pathology: other Condition: stable Disposition: PACU Procedure in detail: Patient was brought to the operating room and placed supine on the surgical table. He was prepped and draped in standard sterile fashion and a time out was called to indentify proper site, proper procedure and IV antibiotics per weight were administered. I insufflated the tourniquet to 300 mmHg I made a standard incision over the superolateral aspect of the patella. Dissection was taken down to the retinaculum and then deep dissection was taken down through the lateral quadriceps fascia to the bipartite patella. A [place] was used to identify the edges of the bipartite patella. This was freed easily off of the patella and then dissected slowly off the fascial attachments proximally. It measured proximally 2 cm x 1.5 cm. This did leave a small defect of the joint capsule. I irrigated copiously and then closed the capsule with 0 Vicryl. I then closed the overlying tissue with 2-0 Vicryl and then absorbable suture and skin glue and Steri-Strips. Patient was then injected with local anesthetic awakened from anesthesia after he was placed in sterile dressings. He is brought to recovery room in stable condition. There were no known complications.
== END 2025-08-24 12:12 | disposition home or self-care (01) ==
LOC: HO.SSS 06:58
PROVIDERS: PCP Internal Medicine; Visit Provider Orthopaedic Surgery
PROC: (CPT 27524; principal; 2025-08-24 08:30)
DX: Q74.1 Congenital malformation of knee (principal); M25.561 Pain in right knee; M89.8X6 Other specified disorders of bone, lower leg
CPT/HCPCS: 27350; 88304; 88311; J0131; J0690; J1100; J2003; J2405; J2704; J2795; J3010

== ENCOUNTER → 2025-08-24 06:57 | Outpatient (BNV) | payer OTHER, SELFPAY | PROVIDERS: PCP Internal Medicine; Visit Provider Orthopaedic Surgery | DX: S82.001A Unspecified fracture of right patella, initial encounter for closed fracture (principal) | CPT/HCPCS: 27350 ==

== ENCOUNTER 2025-08-30 11:26 | Outpatient (AMB) | payer OTHER, SELFPAY ==
--- NOTE | 2025-08-30 11:39 | MHC.OFFVIS ---
Intake Visit Reasons: PO RT bipartite patella excision 08/24/25 NE Intake Note: Phillip is a 39 year old male who presents today for a post operative appointment status post right bipartite patella excision done on 08/24/[address] Perea. Patient reports he is having pain in his knee. He has noticed that his pain has gottne better yesterday. Patient his starting physical therapy tomorrow. Allergies bee pollen (bee stings) Allergy (Verified 08/30/25 11:45) Unknown HPI HPI PO RT bipartite patella excision 08/24/25 NE: Details: Patient is a 39-year-old male who presents to the office today status post right knee bipartite patella excision performed on 08/24/[address] Perea. Patient reports pain and swelling. The pain waxes and wanes. He reports that yesterday he felt as though he did not need the brace and tries to ambulate without. He is to begin physical therapy tomorrow. No additional complaints. [facility] Medical History (Updated 08/15/25 @ 08:51 by Jordyn Robertson RN) Anxiety PTSD (post-traumatic stress disorder) Surgical History (Updated 08/15/25 @ 08:51 by Jordyn Robertson RN) No pertinent past surgical history Social History Are you a primary medicare contact specialist to a significant other at home: No Do you presently have visiting nurse or other home services: No Comment: counts correct Patient Tobacco Use Status: Never used Tobacco Current occupational status: employed Current occupation: Respiratory Therapist Review of Systems Const All systems reviewed & are unremarkable except as noted in HPI and below Physical Exam Const General: cooperative, healthy appearing and no acute distress Resp Effort & Inspection: normal respiratory effort and able to speak in complete sentences Extrem Other: Right knee incision site is clean dry and intact. No surrounding erythema or drainage. No signs of infection. Range of motion 0 to 70 degrees. Quad weakness with performing straight leg raise. NVI. 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 Perea. Patient reports pain and swelling. The pain waxes and wanes. He reports that yesterday he felt as though he did not need the brace and tries to ambulate without. He is to begin physical therapy tomorrow. No additional complaints. While the office today, the incision site was clean dry and intact with no signs of infection. Patient is to remain knee brace while ambulating locked from 0-30 degrees. He is to begin physical therapy tomorrow which they may unlock his brace by 10 degrees each week until full range of motion is obtained. He will follow up in 4 weeks for [id number] check, sooner if needed. 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
--- OUTSIDE RECORDS SUMMARY | 2025-08-30 12:51 | XMS_ITS | Clinical Summary ---
Author Organization [facility] Address [address] [place] [address] Phone Care Team Providers Care Airport Guide Name Role Phone Raleigh Irby MD Primary Care Provider [phone] Dean Zhang DO Unavailable [phone] Allergies Active Allergy Reactions Criticality Noted Date [...] Overview (11/13/2020): Managed [facility] Assessment & Plan (10/07/2024 1:37 PM EST): [...] Continue medical management with psychiatry from the [facility]. he has follow-up scheduled with him in about 3 weeks. Assessment & Plan (05/02/2020 12:03 PM EDT): Patient is very depressed. We contracted for safety. He will follow-up as scheduled with his therapist at the [facility] and psychiatrist in about a month. I [...] Encounters Date Type Department Care Team Description 08/25/2025 Orders Only [facility] Primary Care [facility] [address] [place] [address] Unknown, Unknown, 08/12/2025 Telephone [facility] Primary [facility] [address] [place] [address] Raleigh Irby MD Forms & Paperwork 07/31/2025 Refill [facility] [address] [place] [address] Yahaira Lucero CNP Medication Refill from Last 3 Months Immunizations [...] high school, GED, job training, learning the Sudanese language, technical skills, or developing parenting skills)? [...] Description 10/11/2025 1:00 PM EST Office Visit [facility] [address] [place] [address] [place] [address] Raleigh Irby MD [address] [place] [address] [email or web address] Health Maintenance Due Date Last Done Comments [...] Date/Time Associated Diagnosis Comments OUTSIDE IMAGING Routine 08/24/2025 11:42 AM EST LIPID PANEL Routine 10/27/2024 1:49 PM EST Encounter for preventive health examination GLUCOSE Routine 10/27/2024 1:49 PM EST Encounter for preventive health examination HEPATITIS C ANTIBODY, QUALITATIVE Routine 11/26/2022 9:12 AM EDT Need for hepatitis C screening test from Last 3 Months or Most Recently Relevant to Health Maintenance Results * Outside Imaging Report Only (08/24/2025 11:42 AM EST) us Unknown Unknown IMG XR CHEST Edited Result - Final * Glucose (10/27/2024 1:49 PM EST) GLUCOSE 74 70 - 99 mg/dL [facility] Blood 10/27/2024 1:49 PM EST 10/27/2024 1:51 PM EST us Raleigh Irby MD LAB BLOOD BKR ORDERABLES F inal Result [address] [address] * (ABNORMAL) Lipid panel (10/27/2024 1:49 PM EST) HDL 69 mg/dL [facility] Comment: Interpretation <40 mg/dL: Low HDL cholesterol (major risk factor for CHD) Greater than or equal to 60 mg/dL: High HDL cholesterol ( negative risk factor for CHD) HDL - cholesterol is affected by a number of factors, e.g. smoking, excerise, hormones, sex and age. CHOLESTEROL 165 0 - 240 mg/dL [facility] TRIGLYCERIDES 94 30 - 160 mg/dL [facility] LDL 77 50 - 129 mg/dL [facility] Comment: LDL levels in terms of risk for coronary heart disease: <100 mg/dL: Optimal 100-129 mg/dL: Near or above optimal 130-159 mg/dL: Borderline high 160-189 mg/dL: High >190 mg/dL: Very High CARDIAC RISK RATIO 2.4(L) 3.4 - 5.0 C [facility] Blood 10/27/2024 1:49 PM EST 10/27/2024 1:51 PM EST Raleigh Irby MD LAB BLOOD BKR ORDERABLES F inal Result Performing Organization Address City/[facility]/ZIP Co de Phone Number [address] [address] * Hepatitis C antibody, qualitative (11/26/2022 9:12 AM EDT) HCV NON-REACTIV E NON-REACTI VE [facility] Blood 11/26/2022 9:12 AM EDT 11/26/2022 9:22 AM EDT Raleigh Irby MD LAB BLOOD BKR ORDERABLES F inal Result Performing Organization Address [facility]/ZIP Co de Phone Number [address] [address] from Last 3 Months or Most Recently Relevant to Health Maintenance Insurance [facility] [employer] [facility] [employer] [place] [address] [place] [address] [place] [address] [facility] [employer] [facility] [place] [address] [address] [facility] [employer] [facility] [facility] Care Teams Airport Guide Relationship Specialty Start Date End Date Raleigh Irby MD [address] [place] [address], [address] [place] [address] [email or web address] PCP - General Internal Medicine 10/09/18 Dean Zhang DO [address] [place] [address], [address] [place] [address] Psychiatry 06/07/20 Additional Source Comments The information contained in this document represents components of the legal health record. It is not the complete legal health record.[facility]
--- OUTSIDE RECORDS SUMMARY | 2025-08-30 12:51 | XMS_ITS | Encounter Summary ---
Author Organization [facility] Address [address] [place] [address] Phone Care Team Providers Care Brim Curler Name Role Phone Raleigh Irby MD Primary Care Provider [phone] Dean Zhang DO Unavailable [phone] Encounter Details Date Type Department Care Team (Late st Contact Info) Description 08/25/2025 Orders Only [facility] [address] [place] [address] Unknown, Unknown, Social History Tobacco Use Types Packs/Day Years [...] high school, GED, job training, learning the [place] language, technical skills, or developing parenting skills)? [...] Description 10/11/2025 1:00 PM EST Office Visit [facility] [address] [place] [address] [place] [address] Raleigh Irby MD [address] [place], [place] [id number] [place] [address] [email or web address] documented as of this encounter Procedures Procedure Name Priority Date/Time Associated Diagnosis Comments OUTSIDE IMAGING Routine 08/24/2025 11:42 AM EST documented in this encounter Results * Outside Imaging Report Only (08/24/2025 11:42 AM EST) us Unknown Unknown MD JACKMAN XR CHEST Edited Result - Final documented in this encounter Visit Diagnoses Not on filedocumented in this encounter Additional Health Concerns Assessment Noted Time PHQ-9 Depression Total Score: 24 020 8:39 AM EDT PHQ-2 Depression Total Score: 1 10/06/19 25 10:38 PM EST documented as of this encounter Care Teams Brim Curler Relationship Specialty Start Date End Date Raleigh Irby MD [address] [place] [address], [address] [place] [address] [email or web address] PCP - General Internal Medicine 10/09/18 Dean Zhang DO [address] [place] [address], [address] [place] [address] Psychiatry 06/07/20 documented as of this encounter Additional Source Comments The information contained in this document represents components of the legal health record. It is not the complete legal health record.[facility]
== END 2025-08-30 12:42 | disposition home or self-care (01) ==
LOC: HO.HOS 11:27
PROVIDERS: PCP Internal Medicine; Visit Provider Physician Assistant
DX: Q74.1 Congenital malformation of knee (principal)
CPT/HCPCS: 99024